=== PATIENT | female | born 1960 | race Hispanic/Latino ===

== ENCOUNTER 2022-08-14 04:02 | Emergency (ER) | payer SELFPAY ==
[2022-08-14 04:25] LABS: Bilirubin Neg (Negative); Blood, Urine 10 (Negative); Glucose, Urine (Dipstick) Normal (Negative); Ketone, Urine 5 mg/dL (Negative); Leukocyte 100 (Negative); Nitrite Negative (Negative); Protein, Urine (Dipstick) 15 mg/dl (Neg-Trace)
[2022-08-14 04:28] LABS: Clarity Turbid (Clear)
[2022-08-14 04:35] LABS: RBC/HPF 0-3 HPF (0-3)
[2022-08-14 04:36] LABS: Bacteria/HPF 2+ HPF (None Seen); Calcium Oxalate Crystals 4+ HPF (None Seen); Yeast-Budding Rare HPF (None Seen)
[2022-08-14] MEDS ORDERED: Morphine 4 MG/ML VIAL ONE ×3 (04:38→06:49)
[2022-08-14] MEDS ORDERED: Ketorolac Tromethamine 30 MG/ML VIAL ONE (04:39)
[2022-08-14] MEDS ORDERED: Ondansetron PF 4 MG/2 ML Vial ONE (04:39)
[2022-08-14 04:48] LABS: #Basophils 0.1 10x3/uL (0.0-0.2); #Eosinphils 0.2 10x3/uL (0.0-0.5); #Monocytes 0.4 10x3/uL (0.0-1.1); #Neutrophils 5.3 10x3/uL (1.5-8.4); %Basophils 0.6 % (0.0-2.0); %Eosinophils 1.8 % (0.0-6.0); %Lymphocytes 31.9 % (18.0-47.0); %Neutrophils 60.4 % (40.0-75.0); Hemoglobin 15.5 g/dL (12.0-15.5); Mean Corpuscular HGB CONC 34.8 g/dL (32.0-36.0); Mean Corpuscular Hemoglobin 30.6 pg (27.0-33.0); Mean Corpuscular Volume 88.1 fl (81.6-98.3); Mean Platelet Volume 11.2 fl (7.4-10.4); Platelet Count 269 10x3/uL (150-450); RBC Distribution Width 13.1 % (11.5-14.5); Red Blood Cell (RBC) Count 5.06 10x6/uL (3.90-5.03); White Blood Cell (WBC) Count 8.7 10x3/uL (3.5-10.5)
[2022-08-14 05:00] LABS: ALT (SGPT) 26 U/L (8-55); AST (SGOT) 19 U/L (5-34); Albumin 4.5 g/dL (3.4-4.8); Alkaline Phosphatase 73 U/L (40-110); Anion Gap 16 mmol/L (10-20); BUN (Urea Nitrogen) 23 mg/dL (9.8-20.1); Bilirubin, Total 0.6 mg/dL (0.2-1.2); Calc. Creatinine Clearance 0 mL/min (70-130); Calcium 9.6 mg/dL (7.8-10.44); Carbon Dioxide 19 mmol/L (23-31); Chloride 106 mmol/L (98-107); Estimated GFR 64; Globulin 3.7 g/dL (2.4-3.5); Glucose 180 mg/dL (80-115); Protein, Total 8.2 g/dL (5.8-8.1); Sodium 137 mmol/L (136-145)
[2022-08-14] MEDS ORDERED: cefTRIAXone\\ROCEPHIN 1 GM VIAL ONE (07:11)
[2022-08-14] MEDS ORDERED: Fluconazole 100 MG TAB PO SCH (08:00)
[2022-08-14] MEDS ORDERED: Dicyclomine 20 MG/2 ML VIAL ONE (08:00)
[2022-08-14] MEDS ORDERED: Iopamidol 370 76% 100 ML VIAL ONE (13:57)
== END 2022-08-14 09:35 | disposition home or self-care (01) ==
LOC: CSHERS 04:02
DX: R10.31 Right lower quadrant pain (principal); R10.32 Left lower quadrant pain; K59.00 Constipation, unspecified
CPT/HCPCS: 71275; 74174; 74176; 80053; 81003; 81015; 83690; 85025; 87086; 96361; 96365; 96372; 96375; 96376; J0696; J1885; J2270; J2405; Q9967

== ENCOUNTER 2025-02-17 17:23 | Emergency (ER) | payer OTHER, SELFPAY ==
[2025-02-17] MEDS ORDERED: HYDROcodone/Acetaminophen 5/325 mg Tablet ONE (17:59)
== END 2025-02-17 21:54 | disposition home or self-care (01) ==
LOC: CSHERS 17:23
DX: M25.562 Pain in left knee (principal); I10 Essential (primary) hypertension; Z79.899 Other long term (current) drug therapy
CPT/HCPCS: 99283